=== PATIENT | male | born 1975 | race Caucasian/White ===

== ENCOUNTER 2019-10-27 00:19 | Emergency (ER) | payer SELFPAY ==
--- OUTSIDE RECORDS SUMMARY | 2019-10-27 00:21 | XMS REPORT | Continuity of Care Document ---
:1975 Author Organization [facility] t Address [address] [place] [place] [address] Care Team Providers Name Role Phone Unavailable Unavailable Unavailable Problems This patient has no known problems. Allergies, Adverse Reactions, Alerts This patient has no known allergies or adverse reactions. Medications This patient has no known medications. Procedures This patient has no known procedures. Results This patient has no known results.
[2019-10-27 01:34] LABS: Urine Blood TRACE (NEG); Urine Glucose NEGATIVE (NEG); Urine Protein 2+ (NEG); Urine Specific Gravity >1.030 (1.005-1.030); Urine pH 5.5 (5.0-7.0)
[2019-10-27 01:53] LABS: Barbiturates NEGATIVE (NEGATIVE); Benzodiazepines NEGATIVE (NEGATIVE); Cocaine NEGATIVE (NEGATIVE); METHAMPHETAM POSITIVE (NEGATIVE); Methadone POSITIVE (NEGATIVE); Opiates POSITIVE (NEGATIVE); Phencyclidine NEGATIVE (NEGATIVE); THC Cannibis POSITIVE (NEGATIVE)
--- NOTE | 2019-10-27 02:03 | ER ---
Nurse's Notes [facility] Name: Clement Cavanaugh Age: 44 yrs Sex: Male : 1975 Arrival Date: 10/27/2019 Time: 00:22 Bed 4 Private MD: Diagnosis: Drug overdose - heroin Presentation: 10/26 00:22 Chief complaint: EMS states: PATIENT WAS IN A TRAILER, FOUND BY POLICE IN AN AWKWARD rv POSITION. UNCONSCIOUS BUT BREATHING, POSSIBLE DRUG OVERDOSE. REGAIN CONSCIOUSNESS AND WAS ABLE TO ANSWER QUESTIONS. VITAL SIGNS ARE STABLE. Coronavirus screen: At this time, unable to obtain information related to travel outside the [place] Ebola Screen: No symptoms or risks identified at this time. Initial Sepsis Screen: Does the patient meet any 2 criteria? No. Patient's initial sepsis screen is negative. Does the patient have a suspected source of infection? No. Patient's initial sepsis screen is negative. Risk Assessment: Do you want to hurt yourself or someone else? Patient reports no desire to harm self or others. Onset of symptoms was October 26, 2019 at 23:30. 00:22 Method Of Arrival: EMS: [facility] rv 00:22 Acuity: SLIM 2 rv Triage Assessment: 00:25 General: Appears unkempt, Behavior is cooperative, drowsy. Pain: Denies pain. EENT: No rv signs and/or symptoms were reported regarding the EENT system. Neuro: Level of Consciousness is obeys commands, lethargic, Oriented to person, place, time, situation. Cardiovascular: Patient's skin is warm and dry. Rhythm is sinus rhythm. Respiratory: Airway is patent Respiratory effort is unlabored, Breath sounds are clear bilaterally. Derm: Skin is intact. Historical: - Allergies: 00:25 No Known Allergies; rv - Home Meds: 00:25 None [Active]; rv - PMHx: 00:25 Asthma; rv - PSHx: 00:25 None; rv - Immunization history:: Adult Immunizations up to date. - Social history:: Smoking status: Patient reports the use of cigarette tobacco products, smokes one pack cigarettes per day. - Family history:: not pertinent. - Hospitalizations: : No recent hospitalization is reported. Screenin:27 Abuse screen: Denies threats or abuse. Denies injuries from another. Nutritional rv screening: No deficits noted. Tuberculosis screening: No symptoms or risk factors identified. Fall Risk No fall in past 12 months (0 pts). Secondary diagnosis (15 points) impaired mobility, No IV (0 pts). Ambulatory Aid- None/Bed Rest/Nurse Assist (0 pts). Gait- Weak (10 pts.). Mental Status- Oriented to own ability (0 pts). Total Calloway Fall Scale indicates No Risk (0-24 pts). Assessment: 00:50 General: Appears in no apparent distress. unkempt, Behavior is cooperative, drowsy. rr5 Pain: Denies pain. Neuro: Level of Consciousness is obeys commands, drowsy. Oriented to person, place, time. Cardiovascular: Capillary refill < 3 seconds Patient's skin is warm and dry. Respiratory: Airway is patent Respiratory effort is even, unlabored, Respiratory pattern is regular, symmetrical. GI: No signs and/or symptoms were reported involving the gastrointestinal system. : No signs and/or symptoms were reported regarding the genitourinary system. EENT: No signs and/or symptoms were reported regarding the EENT system. Derm: Skin is intact, is healthy with good turgor, Skin temperature is warm. Musculoskeletal: Circulation, motion, and sensation intact. Capillary refill < 3 seconds. 02:00 Reassessment: Patient appears in no apparent distress at this time. Patient is alert, rr5 oriented x 3, equal unlabored respirations, skin warm/dry/pink. 02:19 Reassessment: Patient appears in no apparent distress at this time. Patient is alert, rr5 oriented x 3, equal unlabored respirations, skin warm/dry/pink. discharge instruction given and explained without complaints made. ambulate steady gait noted. friend waiting outside for his ride home. Vital Signs: 00:22 BP 126 / 93; Pulse 95; Resp 11; Temp 97.9; Pulse Ox 99% on R/A; Weight 68.04 kg; Height rv 6 ft. (182.88 cm); Pain 0/10; 02:00 BP 110 / 84; Pulse 64; Resp 16; Pulse Ox 99% ; rr5 00:22 Body Mass Index 20.34 (68.04 kg, 182.88 cm) rv ED Course: 00:22 Patient arrived in ED. rn 00:22 Felix Taylor MD is Attending Physician. rn 00:22 Alexey Hurley, RN is Primary Nurse. rv 00:25 Triage completed. rv 00:25 Arm band placed on left wrist. Patient placed in the treatment room, on a stretcher, rv Patient notified of wait time. 00:27 Patient has correct armband on for positive identification. 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 Pulse rv ox on. NIBP on. 00:36 Inserted saline lock: 20 gauge in right antecubital area, using aseptic technique. rr5 Blood collected. 02:01 No provider procedures requiring assistance completed. rr5 02:20 IV discontinued, intact, bleeding controlled, No redness/swelling at site. Pressure rr5 dressing applied. Administered Medications: No medications were administered Outcome: 02:02 Discharge ordered by . rn 02:20 Discharged to home ambulatory. rr5 02:20 Condition: stable 02:20 Discharge instructions given to patient, Instructed on discharge instructions, follow up and referral plans. Demonstrated understanding of instructions, follow-up care. 02:20 Patient left the ED. rr5 Signatures: Felix Taylor MD MD rn Vicente, Ronaldo, KEVIN RN Adalid Urbano RN RN rr5
--- NOTE | 2019-10-27 02:03 | EDPHYS ---
Physician Documentation [facility] Name: Clement Cavanaugh Age: 44 yrs Sex: Male : 1975 Arrival Date: 10/27/2019 Time: 00:22 Bed 4 Private MD: ED Physician Felix Taylor HPI: 10/26 00:23 This 44 yrs old Male presents to ER via Unassigned with complaints of rn possible heroin overdose. 00:23 The patient presents to the emergency department with a possible overdose. Severity of rn symptoms: At their worst the symptoms were severe in the emergency department the symptoms have improved. It is unknown whether or not the patient has had similar symptoms in the past. Found at home slumped over, breathing but minimally responsive when police arrived, put in recovery position, EMS arrived and patient more alert. Girlfriend at scene reports he is known heroin user. Patient admits to using heroin, states also needs to leave because has work in morning. No meds given by EMS. . Historical: - Allergies: 00:25 No Known Allergies; rv - Home Meds: 00:25 None [Active]; rv - PMHx: 00:25 Asthma; rv - PSHx: 00:25 None; rv - Immunization history:: Adult Immunizations up to date. - Social history:: Smoking status: Patient reports the use of cigarette tobacco products, smokes one pack cigarettes per day. - Family history:: not pertinent. - Hospitalizations: : No recent hospitalization is reported. ROS: 00:23 Constitutional: Negative for fever, chills, and weight loss, Eyes: Negative for injury, rn pain, redness, and discharge, Neck: Negative for injury, pain, and swelling, Cardiovascular: Negative for chest pain, palpitations, and edema, Respiratory: Negative for shortness of breath, cough, wheezing, and pleuritic chest pain, Abdomen/GI: Negative for abdominal pain, nausea, vomiting, diarrhea, and constipation, MS/Extremity: Negative for injury and deformity, Skin: Negative for injury, rash, and discoloration, Neuro: Negative for headache, weakness, numbness, tingling, and seizure. Exam: 00:23 Constitutional: This is a well developed, well nourished patient who is awake, alert, rn and in no acute distress. Head/Face: Normocephalic, atraumatic. Eyes: Pupils equal, reactive, 4mm ENT: dry MM Neck: Trachea midline, no masses palpated, and no cervical lymphadenopathy. Supple, full range of motion without nuchal rigidity, or vertebral point tenderness. No Meningismus. Cardiovascular: Regular rate and rhythm. No pulse deficits. Respiratory: Slow respirations. No increased work of breathing, no retractions or nasal flaring. Abdomen/GI: soft, non-tender MS/ Extremity: Pulses equal, no cyanosis. Neuro: Somnolent, awakens to voice, able to ambulate to bed from EMS stretcher, equal strength in all extremities, follows commands. 00:40 ECG was reviewed by the Attending Physician. rn Vital Signs: 00:22 BP 126 / 93; Pulse 95; Resp 11; Temp 97.9; Pulse Ox 99% on R/A; Weight 68.04 kg; Height rv 6 ft. (182.88 cm); Pain 0/10; 02:00 BP 110 / 84; Pulse 64; Resp 16; Pulse Ox 99% ; rr5 00:22 Body Mass Index 20.34 (68.04 kg, 182.88 cm) rv MDM: 00:22 Patient medically screened. rn 02:01 Differential diagnosis: Ingestion/exposure to illegal drugs, heroin. Data reviewed: rn vital signs, nurses notes, lab test result(s), EKG, and as a result, I will discharge patient. Counseling: I had a detailed discussion with the patient and/or guardian regarding: the historical points, exam findings, and any diagnostic results supporting the discharge/admit diagnosis, lab results, radiology results, the need for outpatient follow up, to return to the emergency department if symptoms worsen or persist or if there are any questions or concerns that arise at home. Response to treatment: the patient's symptoms have mildly improved after treatment, and as a result, I will discharge patient. Special discussion: I discussed with the patient/guardian in detail that at this point there is no indication for admission to the hospital. It is understood, however, that if the symptoms persist or worsen the patient needs to return immediately for re-evaluation. ED course: Pt more alert, standing and walking on his own, stable vitals, no need for narcan, drug screen positive for several drugs, admits to using heroin, calling for ride, stable for discharge. . 10/26 00:22 Order name: Urine Drug Screen; Complete Time: 01:55 rn 10/26 00:22 Order name: ETOH Level; Complete Time: 01:32 rn 10/26 00:22 Order name: Glucose Level; Complete Time: 00:36 rn 10/26 00:22 Order name: EKG; Complete Time: 00:23 rn 10/26 00:43 Order name: Glucose, Ancillary Testing; Complete Time: 00:48 EDMS 10/26 01:30 Order name: Urine Dipstick--Ancillary (enter results); Complete Time: 01:55 mw2 10/26 00:22 Order name: EKG - Nurse/Tech; Complete Time: 00:36 rn 10/26 00:23 Order name: Monitor; Complete Time: 00:36 rn 10/26 00:23 Order name: IV Start; Complete Time: 00:36 rn EC:40 Rate is 78 beats/min. Rhythm is regular. QRS [place] is Normal. AL interval is normal. QRS rn interval is normal. QT interval is normal. No Q waves. T waves are Normal. No ST changes noted. Clinical impression: Normal ECG. Interpreted by me. Reviewed by me. Administered Medications: No medications were administered Disposition: 10/27/19 02:02 Discharged to Home. Impression: Drug overdose - heroin. - Condition is Stable. - Discharge Instructions: Opioid Overdose, Drug Overdose. - Medication Reconciliation Form, Thank You Letter, Antibiotic Education, Prescription Opioid Use form. - Follow up: Private Physician; When: As needed; Reason: Recheck today's complaints, Re-evaluation by your physician. - Problem is new. - Symptoms have improved. Signatures: Dispatcher [employer] EDCT Felix Taylor MD MD rn Vicente, Ronaldo, RN RN rv Roque, Raymond RN RN rr5 Corrections: (The following items were deleted from the chart) 02:20 02:02 10/27/2019 02:02 Discharged to Home. Impression: Drug overdose - heroin. rr5 Condition is Stable. Forms are Medication Reconciliation Form, Thank You Letter, Antibiotic Education, Prescription Opioid Use. Follow up: Private Physician; When: As needed; Reason: Recheck today's complaints, Re-evaluation by your physician. Problem is new. Symptoms have improved. rn
--- NOTE | 2019-10-29 10:48 | EKG ---
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
== END 2019-10-27 02:20 | disposition home or self-care (01) ==
LOC: ER 00:19
DX: T40.1X1A Poisoning by heroin, accidental (unintentional), initial encounter (principal); F17.210 Nicotine dependence, cigarettes, uncomplicated
CPT/HCPCS: 36415; 80307; 80320; 81003; 82947; 93005; 99284